=== PATIENT | female | born 1930 | race Two or more races ===

== ENCOUNTER 2017-06-25 11:09 | Day surgery (SDC) | payer MEDICARE, OTHER ==
[~2017-06-25 11:09] MED LIST: CHONDR SU A NA/HYALUR INTRAOC KIT (SURGICARE) ONE; EPINEPHRINE INJ/PF 1 MG/1 ML AMPULE ONE; KETOROLAC TROMETHAMINE 0.45% 4 DROP/0.4 ML DROPERETTE OS PRN; LIDOCAINE 1% INJ-PF (10 MG/ML) 30 ML SDV ONE; TRYPAN BLUE 0.06 % OPH SOLN 0.5 ML DISP.SYRIN ONE
[2017-06-25] MEDS: CYCLOPENTOLATE 0.2%/PHENYLEPHRINE 1% OPH SOLN 2 ML OS PRN ×3 (11:28→11:48)
[2017-06-25] MEDS: BESIFLOXACIN HCL 0.6% OPH SUSP 5 ML BOTTLE OS PRN ×3 (11:28→12:44)
[2017-06-25] MEDS: TROPICAMIDE 1% OPH SOLN 3 ML OS PRN ×3 (11:28→11:48)
[2017-06-25] MEDS: TETRACAINE HCL 0.5% OPH SOLN 2 ML OS PRN ×3 (11:29→12:26)
[2017-06-25] MEDS ORDERED: MIDAZOLAM 2 MG/2 ML INJ ONE (11:58)
[2017-06-25] MEDS ORDERED: FENTANYL CITRATE INJ/PF 100 MCG/2 ML AMPUL ONE (11:59)
--- NOTE | 2017-06-25 18:23 | [facility] DISCHARGE SUMMARY E ---
[facility] Discharge Summary NAME: GOLD CONTRERAS AGE: 86Y ADMITTED: 06/25/2017 DISCHARGED: 06/25/2017 HISTORY OF PRESENT ILLNESS AND HOSPITAL COURSE: This is an 86-year-old female who underwent cataract extraction of the left eye. DIAGNOSIS: Cataract, left eye. HOSPITAL COURSE: She underwent surgery because she was trouble reading small print. DISCHARGE INSTRUCTIONS: 1. She should be on a regular diet. 2. No bending at the waist and no heavy lifting. 3. She should use Besivance, Ilevro, and Durezol at 3 p.m. and 8 p.m. and sleep with a rigid shield. 4. I will see her for her one-day postoperative tomorrow. DICTATING PHYSICIAN: JENNIFER CORONADO M.D. [id number] PHY#: [id number] ID: [id number] JOB#: [id number] ACCT: [id number] cc:JENNIFER CORONADO M.D. >
--- NOTE | 2017-06-25 18:23 | [facility] OPERATIVE REPORT E ---
[facility] Operative Report NAME: GOLD CONTRERAS AGE: 86Y DATE OF SURGERY: 06/25/2017 ROOM: PREOPERATIVE DIAGNOSIS: Cataract, left eye. POSTOPERATIVE DIAGNOSIS: Cataract, left eye. OPERATION: Cataract extraction with intraocular lens implant of the left eye. SURGEON: JENNIFER CORONADO M.D. ANESTHESIA: Topical. PROCEDURE: After obtaining appropriate consent, the patient's left eye was prepped and draped in sterile fashion as well as the surgeon in a sterile manner and cataract surgery was started. First a paracentesis blade was used to make a small side-port incision. Viscoelastic was used to inflate the anterior chamber. Next a 2.4 mm incision was made with the paracentesis blade. A continuous capsulorrhexis incision was made using a cystotome and Utrata forceps. Following this hydrodissection was carried out to make the lens fully loose and mobile and it was rotated 90 degrees. Following this, a urrfpk-etl-oqlwgrk technique was used to phacoemulsify the lens with a CDE of 8.14. The remaining cortex was removed with irrigation/aspiration. Provisc was instilled into the capsular bag to inflate the bag. A SN60WF, 23.0 diopter lens was placed. The remaining viscoelastic material was removed with irrigation/aspiration. Following this, a 10-0 nylon suture was used to close the incision and it was found to be watertight. Vigamox was instilled in the eye and a protective shield was placed over the eye. The patient returned to the postoperative recovery in stable condition. DICTATING PHYSICIAN: JENNIFER CORONADO M.D. [id number] PHY#: [id number] ID: [id number] JOB#: [id number] ACCT: [id number] cc:JENNIFER CORONADO M.D. >
== END 2017-06-25 13:48 | disposition home or self-care (01) ==
LOC: SC 11:09
PROVIDERS: ATTEND Internal Medicine
PROC: 08RK3JZ Replacement of Left Lens with Synthetic Substitute, Percutaneous Approach (ICD-10-PCS; principal; 2017-06-25 12:30)
DX: H25.812 Combined forms of age-related cataract, left eye (principal); H57.03 Miosis; I10 Essential (primary) hypertension; E07.9 Disorder of thyroid, unspecified; K21.9 Gastro-esophageal reflux disease without esophagitis; Z88.8 Allergy status to other drugs, medicaments and biological substances; Z79.899 Other long term (current) drug therapy; Z79.82 Long term (current) use of aspirin
CPT/HCPCS: 66984; V2632; J2250; J3490 ×2; A9270; J0171; J3010; 142

== ENCOUNTER 2017-07-16 11:02 | Day surgery (SDC) | payer MEDICARE, OTHER ==
[~2017-07-16 11:02] MED LIST changes: +BESIFLOXACIN HCL 0.6% OPH SUSP 5 ML BOTTLE OD PRN; +CYCLOPENTOLATE 0.2%/PHENYLEPHRINE 1% OPH SOLN 2 ML OD PRN; +KETOROLAC TROMETHAMINE 0.45% 4 DROP/0.4 ML DROPERETTE OD PRN; -KETOROLAC TROMETHAMINE 0.45% 4 DROP/0.4 ML DROPERETTE OS PRN; +TETRACAINE HCL 0.5% OPH SOLN 2 ML OD PRN; +TROPICAMIDE 1% OPH SOLN 3 ML OD PRN
[2017-07-16] MEDS ORDERED: FENTANYL CITRATE INJ/PF 100 MCG/2 ML AMPUL ONE (11:19)
[2017-07-16] MEDS ORDERED: MIDAZOLAM 2 MG/2 ML INJ ONE (11:19)
== END 2017-07-16 11:23 | disposition home or self-care (01) ==
LOC: SC 11:02
PROVIDERS: ATTEND Internal Medicine
DX: R69 Illness, unspecified (principal)
CPT/HCPCS: J0171; J2250; J3010; J3490

== ENCOUNTER 2017-09-17 10:09 | Day surgery (SDC) | payer MEDICARE, OTHER ==
[~2017-09-17 10:09] MED LIST changes: -BESIFLOXACIN HCL 0.6% OPH SUSP 5 ML BOTTLE OD PRN; -CHONDR SU A NA/HYALUR INTRAOC KIT (SURGICARE) ONE; -CYCLOPENTOLATE 0.2%/PHENYLEPHRINE 1% OPH SOLN 2 ML OD PRN; -EPINEPHRINE INJ/PF 1 MG/1 ML AMPULE ONE; -LIDOCAINE 1% INJ-PF (10 MG/ML) 30 ML SDV ONE; -TETRACAINE HCL 0.5% OPH SOLN 2 ML OD PRN; -TROPICAMIDE 1% OPH SOLN 3 ML OD PRN; -TRYPAN BLUE 0.06 % OPH SOLN 0.5 ML DISP.SYRIN ONE
[2017-09-17] MEDS ORDERED: EPINEPHRINE INJ/PF 1 MG/1 ML AMPULE ONE (10:29)
[2017-09-17] MEDS ORDERED: PHENYLEPHRINE/KETOROLAC 1%-0.3% 4 ML VIAL ONE (10:30)
[2017-09-17] MEDS ORDERED: CHONDR SU A NA/HYALUR INTRAOC KIT (SURGICARE) ONE (10:30)
[2017-09-17] MEDS ORDERED: LIDOCAINE 1% INJ-PF (10 MG/ML) 30 ML SDV ONE (10:30)
[2017-09-17] MEDS: TETRACAINE HCL 0.5% OPH SOLN 2 ML OD PRN ×3 (11:12→11:52)
[2017-09-17] MEDS: CYCLOPENTOLATE 0.2%/PHENYLEPHRINE 1% OPH SOLN 2 ML OD PRN ×3 (11:13→11:34)
[2017-09-17] MEDS: TROPICAMIDE 1% OPH SOLN 3 ML OD PRN ×3 (11:13→11:34)
[2017-09-17] MEDS: BESIFLOXACIN HCL 0.6% OPH SUSP 5 ML BOTTLE OD PRN ×3 (11:14→12:13)
[2017-09-17] MEDS ORDERED: TRYPAN BLUE 0.06 % OPH SOLN 0.5 ML DISP.SYRIN ONE (11:18)
[2017-09-17] MEDS ORDERED: MIDAZOLAM 2 MG/2 ML INJ ONE (11:46)
[2017-09-17] MEDS ORDERED: FENTANYL CITRATE INJ/PF 100 MCG/2 ML AMPUL ONE (11:47)
--- NOTE | 2017-09-17 19:14 | [facility] OPERATIVE REPORT E ---
[facility] Operative Report NAME: GOLD CONTRERAS AGE: 86Y DATE OF SURGERY: 09/17/2017 ROOM: PREOPERATIVE DIAGNOSIS: CATARACT, RIGHT EYE. POSTOPERATIVE DIAGNOSIS: CATARACT, RIGHT EYE. OPERATION: Cataract extraction with intraocular lens implant of the right eye. SURGEON: JENNIFER CORONADO M.D. ANESTHESIA: Topical. PROCEDURE: After obtaining appropriate consent, the patient's right eye was prepped and draped in sterile fashion as well as the surgeon in a sterile manner and cataract surgery was started. First a paracentesis blade was used to make a small side-port incision. Viscoelastic was used to inflate the anterior chamber. Next a 2.4 mm incision was made with the paracentesis blade. A continuous capsulorrhexis incision was made using a cystotome and Utrata forceps. Following this hydrodissection was carried out to make the lens fully loose and mobile and it was rotated 90 degrees. Following this, a ofpoaj-wkn-khaujhu technique was used to phacoemulsify the lens with a CDE of 9.64. The remaining cortex was removed with irrigation/aspiration. Provisc was instilled into the capsular bag to inflate the bag. A SN60WF, 21.5 diopter lens was placed. The remaining viscoelastic material was removed with irrigation/aspiration. Following this, a 10-0 nylon suture was used to close the incision and it was found to be watertight. Vigamox was instilled in the eye and a protective shield was placed over the eye. The patient returned to the postoperative recovery in stable condition. DICTATING PHYSICIAN: JENNIFER CORONADO M.D. [id number] PHY#: [id number] ID: [id number] JOB#: [id number] ACCT: [id number] cc:JENNIFER CORONADO M.D. >
--- NOTE | 2017-09-17 19:19 | [facility] DISCHARGE SUMMARY E ---
[facility] Discharge Summary NAME: GOLD CONTRERAS AGE: 86Y ADMITTED: 09/17/2017 DISCHARGED: 09/17/2017 HOSPITAL COURSE: This is an 86-year-old female who underwent cataract extraction of the right eye. DIAGNOSIS: CATARACT, RIGHT EYE. She underwent surgery because she was having difficulty reading small print. DISCHARGE INSTRUCTIONS: She is to be on a regular diet. No bending at her waist, no heavy lifting. She should use Besivance, Ilevro, and Durezol at 3 p.m. and 8 p.m. and sleep with a rigid shield. I will see her for her 1 day postoperative tomorrow. DICTATING PHYSICIAN: JENNIFER CORONADO M.D. [id number] PHY#: [id number] ID: [id number] JOB#: [id number] ACCT: [id number] cc:JENNIFER CORONADO M.D. >
== END 2017-09-17 13:10 | disposition home or self-care (01) ==
LOC: SC 10:09
PROVIDERS: ATTEND Internal Medicine
PROC: 08RJ3JZ Replacement of Right Lens with Synthetic Substitute, Percutaneous Approach (ICD-10-PCS; principal; 2017-09-17 12:30)
DX: H25.811 Combined forms of age-related cataract, right eye (principal); H57.03 Miosis; Z96.1 Presence of intraocular lens; M19.90 Unspecified osteoarthritis, unspecified site; I10 Essential (primary) hypertension; E07.9 Disorder of thyroid, unspecified; K21.9 Gastro-esophageal reflux disease without esophagitis; Z79.899 Other long term (current) drug therapy
CPT/HCPCS: 66984; V2632; J2250; J3490 ×2; A9270; J0171; 142; C9447; J3010

== ENCOUNTER → 2018-04-30 | Outpatient (CLI) | payer MEDICARE, OTHER ==
--- NOTE | 2018-04-30 09:59 | RADIOLOGY REPORT (SQ) ---
EXAM DESCRIPTION: U/S [facility] DUPLEX ART/ADA FLOW COMPLETED DATE/TIME: 04/30/2018 9:30 am REASON FOR STUDY: HTN/ANIKA I70.1 ATHEROSCLEROSIS OF RENAL ARTERY COMPARISON: None. TECHNIQUE: Realtime and static grayscale images acquired. Selected color Doppler, velocities and spe ctral images recorded. LIMITATIONS: None. FINDINGS: RIGHT KIDNEY: RENAL ARTERY VELOCITIES: Hilum 53.7 cm/sec. Segmental artery velocity 41.8 cm/sec. RENAL VEIN: Color doppler flow present, patent. VELOCITY RATIO: 0.99. Normal waveforms. KIDNEY: Normal size. No significant pathology. LEFT KIDNEY: RENAL ARTERY VELOCITIES: Hilum 80.9 cm/sec. Segmental artery velocity 52.9 cm/sec. RENAL VEIN: Color doppler flow present, patent. VELOCITY RATIO: 1.5. Normal waveforms. KIDNEY: 8.9 cm Mildly dilated renal pelvis. BLADDER: 9.1 cm OTHER: 6 mm cyst. IMPRESSION: NO DOPPLER EVIDENCE OF HEMODYNAMICALLY SIGNIFICANT RENAL ARTERY STENOSIS. COMMENT: NORMAL RENAL ARTERY/AORTA VELOCITY RATIO IS LESS THAN OR EQUAL TO 3.5. TECHNICAL DOCUMENTATION: JOB ID: [id number] [employer]- All Rights Reserved Reading location - IP/workstation name: [email or web address]
--- NOTE | 2018-04-30 10:24 | RADIOLOGY REPORT (SQ) ---
EXAM DESCRIPTION: U/S RETROPERITON (RENAL/AORTA) COMPLETED DATE/TIME: 04/30/2018 9:30 am REASON FOR STUDY: HTN/ANIKA I70.1 ATHEROSCLEROSIS OF RENAL ARTERY COMPARISON: None. TECHNIQUE: Dynamic and static grayscale images acquired of the kidneys and bladder and recorded on P ACS. Additional selected color Doppler and spectral images recorded. LIMITATIONS: None. FINDINGS: RIGHT KIDNEY: 8.9 cm slight increased echogenicity. No solid or suspicious masses. Mild dilatation of renal pelvis. No calcifications. LEFT KIDNEY: 9.1 cm slight increase echogenicity. 6 mm cyst. No hydronephrosis. No calcifica tions. BLADDER: No masses. OTHER FINDINGS: No other significant finding. IMPRESSION: Mild chronic medical renal disease. Mild dilatation of the right renal pelvis. TECHNICAL DOCUMENTATION: JOB ID: [id number] [email or web address]- All Rights Reserved Reading location - IP/workstation name: [email or web address]
== END ==
LOC: RAD 07:41
PROVIDERS: ATTEND Internal Medicine Clinical Cardiac Electrophysiology
DX: I70.1 Atherosclerosis of renal artery (principal); N18.9 Chronic kidney disease, unspecified
CPT/HCPCS: 76770; 93976

== ENCOUNTER → 2019-03-03 | Outpatient (CLI) | payer MEDICARE, OTHER ==
--- NOTE | 2019-03-05 13:08 | XCELERA REPORT ---
[address] [address] Lower Extremity Arterial Evaluation Name: GOLD CONTRERAS Age: 88 yrs Gender: Female : 1930 Patient Status: Outpatient Patient Location: Study Date: 03/03/2019 11:13 AM Procedure: A color flow and duplex scan of the lower extremity arteries was performed bilaterally with velocity and waveform anaylsis. Ankle brachial indicies performed. PPG's performed. Reason For Study: PVD PAD Ordering Physician: DEVENDRA SHANNON Performed By: Ade Flores Measurements and Calculations Right Left ACCOUNTS EXECUTIVE PSV 89.3 73.5 cm/sec Prox PFA PSV -85.0 -67.6 cm/sec Prox SFA PSV -111.0 -66.4 cm/sec Mid SFA PSV -75.1 -66.8 cm/sec Dist SFA PSV -150.3 -51.9 cm/sec Prox Pop A PSV 40.9 cm/sec Dist Pop A PSV -82.1 cm/sec Dist YANCY PSV -47.4 58.9 cm/sec Dist INTERNET MARKETING ANALYST PSV -31.9 54.1 cm/sec Amari Pedis PSV 25.3 34.8 cm/sec Right Side Arterial Evaluation Normal velocity and triphasic waveforms noted from the Common Femoral to the Femoral artery . Biphasic with low normal velocity, no significant spectral broadening in the Popliteal and infrageniculate arteries. Dorsalis pedis moderate attenuation. Roche scale shows vessel wall calcific plaques, extensive. Ankle Brachial index not obtainable, non compressible. PPG's are multiphasic with mild attenuation. Left Side Arterial Evaluation Normal velocity and triphasic waveforms noted from the Common Femoral to the infrageniculate arteries. Dorsalis pedis moderate spectral broadening, biphasic. Roche scale shows vessel wall calcific plaques, extensive. Ankle Brachial index not obtainable, non compressible. PPG's are multiphasic with mild attenuation. Interpretation Summary Moderate hemodynamically significant lesions in the right lower extremity only, on duplex imaging, at rest. Mild hemodynamically significant lesions in the left lower extremity only, on duplex imaging, at rest. Atherosclerosis with mild effects on right, moderate on left. No focal stenoses identified, Popliteal and Dorsalis Pedis seems significant areas on right, inflow and Dorsalis on left. BOONE non compressibility suggests medial arterial wall sclerosis, likely due to visible calcification. PPG's are mildly abnormal , bilaterally. : DEVENDRA SHANNON > Julius Rosario
== END ==
LOC: SP 10:57
PROVIDERS: ATTEND Preventive Medicine Undersea and Hyperbaric Medicine
DX: I70.25 Atherosclerosis of native arteries of other extremities with ulceration (principal)
CPT/HCPCS: 93922; 93925